=== PATIENT | male | born 1985 | race Caucasian/White ===

== ENCOUNTER → 2018-04-09 | Outpatient (CLI) | payer OTHER ==
[2018-04-09 15:00] LABS: ALK PHOS 100 U/L (46-116); ALT (SGPT) 39 U/L (16-63); ANION GAP 7 (6-14); AST (SGOT) 23 U/L (15-37); BLOOD UREA NITROGEN 15 mg/dL (8-26); CALCIUM 9.1 mg/dL (8.5-10.1); CARBON DIOXIDE 28 mmol/L (21-32); CHLORIDE 103 mmol/L (98-107); DIRECT BILIRUBIN 0.1 mg/dL (0.0-0.2); GFR 86.1; GLUCOSE 113 mg/dL (70-99); POTASSIUM 3.5 mmol/L (3.5-5.1); SODIUM 138 mmol/L (136-145); TOTAL BILIRUBIN 0.4 mg/dL (0.2-1.0); TOTAL PROTEIN 7.7 g/dL (6.4-8.2)
== END | disposition home or self-care (01) ==
LOC: SURGPAT 13:23
DX: Z01.818 Encounter for other preprocedural examination (principal)
CPT/HCPCS: 36415; 80048; 80076

== ENCOUNTER 2018-04-29 15:37 | Inpatient (IN) | payer OTHER ==
[2018-04-29] MEDS ORDERED: ONDANSETRON PF 4 MG/2 ML VIAL. IV (15:45)
[2018-04-29 16:20] LABS: ADD MAN DIFF? NO
[2018-04-29 16:24] LABS: BASO % 0 % (0-3); EOS # 0.1 x10^3/uL (0.0-0.7); EOS % 1 % (0-3); HEMOGLOBIN 14.3 g/dL (13.0-17.5); LYMPH # 1.6 x10^3/uL (1.0-4.8); LYMPH % 15 % (24-48); MEAN CORPUSCULAR HEMOGLOBIN 31 pg (25-35); MEAN CORPUSCULAR HGB CONC 34 g/dL (31-37); MEAN CORPUSCULAR VOLUME 90 fL (79-100); MONO # 0.9 x10^3/uL (0.0-1.1); MONO % 8 % (0-9); NEUT # 8.6 x10^3uL (1.8-7.7); NEUT % 77 % (31-73); PLATELET COUNT 183 x10^3/uL (140-400); RED BLOOD COUNT 4.65 x10^6/uL (4.30-5.70); RED CELL DISTRIBUTION WIDTH 12.2 % (11.5-14.5); WHITE BLOOD COUNT 11.2 x10^3/uL (4.0-11.0)
[2018-04-29 16:51] LABS: ALBUMIN 3.8 g/dL (3.4-5.0); ALBUMIN/GLOBULIN RATIO 1.1 (1.0-1.7); ALK PHOS 84 U/L (46-116); ALT (SGPT) 33 U/L (16-63); ANION GAP 7 (6-14); AST (SGOT) 16 U/L (15-37); BLOOD UREA NITROGEN 12 mg/dL (8-26); BUN/CREATININE RATIO 15 (6-20); CARBON DIOXIDE 28 mmol/L (21-32); CHLORIDE 105 mmol/L (98-107); CREATININE 0.8 mg/dL (0.7-1.3); GFR 111.3; GLUCOSE 92 mg/dL (70-99); LIPASE 127 U/L (73-393); POTASSIUM 3.6 mmol/L (3.5-5.1); SODIUM 140 mmol/L (136-145); TOTAL BILIRUBIN 0.5 mg/dL (0.2-1.0); TOTAL PROTEIN 7.2 g/dL (6.4-8.2)
[2018-04-29] MEDS: IV NORMAL SALINE 1000ML BAG 1,000 ML IV (17:12)
[2018-04-29] MEDS: PIPERACILLIN/TAZOBACTAM 3.375 GM in IV NORMAL SALINE 50ML 50 ML IV (17:13)
[2018-04-29] MEDS: fentaNYL PF VIAL 100 MCG/2 ML VIAL IV ×2 (17:55→22:11)
[2018-04-30] MEDS: PIPERACILLIN/TAZOBACTAM 3.375 GM in IV NORMAL SALINE 50ML 50 ML IV ×4 (00:11→18:00)
[2018-04-30] MEDS: IV NORMAL SALINE 1000ML BAG 1,000 ML IV (05:46)
[2018-04-30] MEDS ORDERED: BUPIVACAINE-EPI 0.5%-1:200000 50 ML VIAL. (06:09)
[2018-04-30] MEDS ORDERED: GLUCAGON,HUMAN RECOMBINANT 1 MG/ML VIAL. (06:09)
[2018-04-30] MEDS ORDERED: SURGICEL HEMOSTAT 4X8 EACH. (06:09)
[2018-04-30] MEDS ORDERED: IOHEXOL 300 MG/ML 100ML VIAL. (06:09)
[2018-04-30] MEDS: fentaNYL PF VIAL 100 MCG/2 ML VIAL IV ×2 (06:59→21:05)
[2018-04-30] MEDS ORDERED: fentaNYL PF VIAL 100 MCG/2 ML VIAL IV ×2 (07:00)
[2018-04-30] MEDS ORDERED: ONDANSETRON PF 4 MG/2 ML VIAL. IV ×2 (07:00→10:30)
[2018-04-30] MEDS ORDERED: LIDOCAINE 1% PF 2 ML VIAL. ID (07:00)
[2018-04-30] MEDS ORDERED: MIDAZOLAM HCL/PF 2 MG/2 ML VIAL. (08:56)
[2018-04-30] MEDS ORDERED: PROPOFOL 20 ML IV (08:57)
[2018-04-30] MEDS ORDERED: fentaNYL PF VIAL 250 MCG/5 ML VIAL (08:57)
[2018-04-30] MEDS ORDERED: ROCURONIUM 50 MG/5 ML VIAL. (08:57)
[2018-04-30] MEDS ORDERED: LIDOCAINE 2% PF Vial for OR 5 ML VIAL. (08:57)
[2018-04-30] MEDS: IV RINGERS,LACTATED 1000ML 1,000 ML IV ×2 (09:04→10:37)
[2018-04-30] MEDS ORDERED: SUCCINYLCHOLINE 200 MG/10 ML VIAL. (09:16)
[2018-04-30] MEDS ORDERED: DEXAMETHASONE SOD PHOS 20 MG/5 ML VIAL. (09:28)
[2018-04-30] MEDS ORDERED: ONDANSETRON PF 4 MG/2 ML VIAL. (09:28)
[2018-04-30] MEDS: SURGICEL HEMOSTAT 4X8 EACH. TP (09:36)
[2018-04-30] MEDS: IOHEXOL 300 MG/ML 100ML VIAL. INT CAT (09:36)
[2018-04-30] MEDS: BUPIVACAINE-EPI 0.5%-1:200000 50 ML VIAL. INJ (09:36)
[2018-04-30] MEDS ORDERED: GLYCOPYRROLATE 1 MG/5 ML VIAL. (09:59)
[2018-04-30] MEDS ORDERED: NEOSTIGMINE METHYLSULFATE 5 MG/5 ML SYRINGE. (09:59)
[2018-04-30] MEDS ORDERED: KETOROLAC 30 MG/ML INJ FOR OR. INJ (10:07)
[2018-04-30] MEDS: POTASSIUM CL 20MEQ-0.45% NACL 1,000 ML IV ×2 (10:27→20:27)
[2018-04-30] MEDS ORDERED: DEXTROSE 50% 25 GM / 50ML DISP.SYRIN. IV (10:30)
[2018-04-30] MEDS ORDERED: MORPHINE SULFATE 10 MG/ML VIAL. IV (10:30)
[2018-04-30] MEDS ORDERED: 0.9 % SODIUM CHLORIDE 10 ML DISP.SYRIN. IV (10:30)
[2018-04-30] MEDS: MORPHINE SULFATE 2 MG/ML DISP.SYRIN. IV ×2 (10:38→11:27)
[2018-04-30] MEDS: PROCHLORPERAZINE 10 MG/2 ML VIAL. IV ×2 (10:38→11:26)
[2018-04-30] MEDS: diphenhydrAMINE 50 MG/ML VIAL IV (11:48)
[2018-04-30] MEDS ORDERED: LORazepam 0.5 MG TABLET PO (12:00)
[2018-04-30] MEDS: oxyCODONE/APAP 5/325 1 TAB TABLET PO ×2 (13:54→18:00)
[2018-04-30] MEDS: LACTOBACILLUS RHAMNOSUS GG 1 CAPSULE. PO (21:05)
[2018-04-30] MEDS: diphenhydrAMINE HCL 25 MG CAPSULE PO (21:05)
[2018-04-30] MEDS: DOCUSATE SODIUM 100 MG CAPSULE. PO (21:05)
[2018-04-30] MEDS: ENOXAPARIN 40 MG/0.4 ML SYRINGE. SQ (21:06)
[2018-05-01] MEDS: PIPERACILLIN/TAZOBACTAM 3.375 GM in IV NORMAL SALINE 50ML 50 ML IV ×3 (00:22→11:35)
[2018-05-01] MEDS: oxyCODONE/APAP 5/325 1 TAB TABLET PO ×3 (00:25→11:37)
[2018-05-01] MEDS: POTASSIUM CL 20MEQ-0.45% NACL 1,000 ML IV (06:03)
[2018-05-01] MEDS: DOCUSATE SODIUM 100 MG CAPSULE. PO (08:49)
[2018-05-01] MEDS: LACTOBACILLUS RHAMNOSUS GG 1 CAPSULE. PO (08:49)
== END 2018-05-01 12:53 | disposition home or self-care (01) | DRG 419 ==
LOC: 4 NORTH 15:37
PROC: 0FT44ZZ Resection of Gallbladder, Percutaneous Endoscopic Approach (ICD-10-PCS; principal; 2018-04-30 09:08)
PROC: BF101ZZ Fluoroscopy of Bile Ducts using Low Osmolar Contrast (ICD-10-PCS; 2018-04-30 09:08)
DX: K80.00 Calculus of gallbladder with acute cholecystitis without obstruction (principal); G89.29 Other chronic pain; Z90.49 Acquired absence of other specified parts of digestive tract; Z79.899 Other long term (current) drug therapy
CPT/HCPCS: 36415; 74300; 80053; 83690; 85025; 88304; J0330; J0780; J1100; J1200; J1610; J1650; J1885; J2001; J2250; J2270; J2405; J2543; J2704; J2710; J3010; J3490; J7030; J7120; Q0163; Q9967

== ENCOUNTER → 2018-11-29 | Outpatient (CLI) | payer OTHER ==
[2018-05-01 11:00] VITALS: BP 113/68
[~2018-11-29] MED LIST: CEFD300C PO; CITA10TA8 PO; CYCL5TAB PO; GABA-585 PO; HYDR-3135 PO; IBUP200T44 PO; META-21 PO; METH20TA PO; TRAZ300T2 PO
--- NOTE | 2018-11-29 16:41 | KCIC ---
MRI of the cervical spine without contrast 11/29/2018 CLINICAL HISTORY: Neck pain with pain in both arms. TECHNIQUE: Unenhanced T1-weighted, T2-weighted and inversion recovery sagittal and gradient echo and T2-weighted axial images of the cervical spine were obtained. FINDINGS: Comparison study is dated 08/10/2015. Mild lateral curvature of the cervical spine is seen convex to the right. There is mild straightening of the normal cervical lordosis. Degenerative signal changes are seen involving all of the disks of the cervical spine. The marrow signal of the visualized bony structures is within normal limits. The cervical spinal cord is normal morphology, position, and signal characteristics. On the axial images throughout the cervical spine, degenerative changes are seen consisting of minimal to mild generalized disc bulges and degenerative changes involving the uncovertebral and facet joints bilaterally. These findings do not result in significant central spinal canal or neural foraminal stenosis at any level. IMPRESSION: Degenerative changes are seen throughout the cervical spine. These findings do not result in significant central spinal canal or neural foraminal stenosis at any level. Electronically signed by: Armando Schrader MD (11/29/2018 4:38 PM) [id number]
== END | disposition home or self-care (01) ==
LOC: KCIC MRI 15:42
PROVIDERS: ATTEND Physician Assistant Medical
DX: M47.892 Other spondylosis, cervical region (principal)
CPT/HCPCS: 72141